=== PATIENT | female | born 1970 | race Two or more races ===

== ENCOUNTER → 2016-09-29 | Day surgery (SDC) | payer OTHER | END | disposition home or self-care (01) | LOC: FMAMMOTONE 10:00 | PROVIDERS: ATTEND Surgery | PROC: 0HBU3ZX Excision of Left Breast, Percutaneous Approach, Diagnostic (ICD-10-PCS; principal; 2016-09-29) | DX: N63 Unspecified lump in breast (principal); Z53.8 Procedure and treatment not carried out for other reasons | CPT/HCPCS: 19081 ==

== ENCOUNTER 2020-11-21 10:07 | Emergency (ER) | payer OTHER ==
[2020-11-21 10:16] VITALS: BP 117/65; PULSE 104; BMI 19.5
[2020-11-21] MEDS ORDERED: ACETAMINOPHEN 500 MG TABLET (FP) PO ONE (11:03)
[2020-11-21] MEDS ORDERED: ACETAMINOPHEN 500 MG TABLET (FP) ONE (11:04)
[2020-11-21 12:20] VITALS: TEMP 99.8
== END 2020-11-21 12:20 | disposition home or self-care (01) ==
LOC: JER 10:07
DX: J18.1 Lobar pneumonia, unspecified organism (principal); R05 Cough; R50.9 Fever, unspecified
CPT/HCPCS: 71046-TC-FY; 99283-25

== ENCOUNTER 2020-12-01 22:05 | Emergency (ER) | payer OTHER ==
[2020-12-01 22:16] VITALS: BP 105/69; PULSE 85; BMI 19.5
== END 2020-12-02 01:02 | disposition home or self-care (01) ==
LOC: JER 22:05
DX: U07.1 COVID-19 (principal); R05 Cough; R91.8 Other nonspecific abnormal finding of lung field
CPT/HCPCS: 71250-TC; 99284-25; C9803; U0003; U0005